=== PATIENT | female | born 1980 | race Caucasian/White ===

== ENCOUNTER 2023-02-02 13:49 | Emergency (ER) | payer BC ==
[~2023-02-02] VITALS: Ht 165.1 cm; Wt 81.2 kg
[2023-02-02 14:00] VITALS: BP_SYST 112
[2023-02-02 14:41] LABS: BASOPHILS % (AUTO) 0.7 % (0.0-2.0); EOSINOPHILS # (AUTO) 0.1 K/uL (0.0-0.4); EOSINOPHILS % (AUTO) 1.8 % (0.0-4.0); HEMATOCRIT 42.6 % (36-48); HEMOGLOBIN 14.5 g/dL (12.0-16.0); LYMPHOCYTES # (AUTO) 1.4 K/uL (1.0-5.5); LYMPHOCYTES % (AUTO) 20.9 % (20.5-51.5); MEAN CORPUSCULAR HEMOGLOBIN 31 pg (27-31); MEAN CORPUSCULAR HGB CONC 34 % (32-36); MEAN CORPUSCULAR VOLUME 90 fL (79.0-98.0); MONOCYTES # (AUTO) 0.5 K/uL (0.0-1.0); NEUTROPHILS # (AUTO) 4.7 K/uL (1.8-7.7); NEUTROPHILS % (AUTO) 69.6 % (40.0-70.0); PLATELET COUNT (AUTO) 286 K/uL (130-430); RED BLOOD CELL COUNT(AUTO) 4.75 MIL/uL (4.2-6.2); RED CELL DISTRIBUTION WIDTH 13.2 % (9.0-15.0); WHITE BLOOD COUNT (AUTO) 6.7 K/uL (4.8-10.8)
[2023-02-02 15:10] LABS: ANION GAP 11 (5-15); CALCIUM 8.9 mg/dL (8.4-11.0); CHLORIDE 99 mmol/L (98-107); CREATININE 0.77 mg/dL (0.55-1.30); GFR AFRICAN AMERICAN 105 mL/min (>90); GLUCOSE 71 mg/dL (74-106); UREA NITROGEN, BLOOD 11 mg/dL (8-21)
[2023-02-02 15:17] LABS: ALANINE AMINOTRANSFERASE 21 U/L (12-78); ALBUMIN 4.1 g/dL (3.4-4.8); ASPARTATE AMINOTRANSFERASE 15 U/L (10-37)
[2023-02-02] MEDS ORDERED: TRAM50TA2 PO (16:15)
[2023-02-02] MEDS ORDERED: IBUP-1969 PO (16:15)
[2023-02-02 16:24] VITALS: BP_SYST 112
== END 2023-02-02 16:24 | disposition home or self-care (01) ==
LOC: SED 13:49
DX: R07.89 Other chest pain (principal); Z88.1 Allergy status to other antibiotic agents; Z79.899 Other long term (current) drug therapy
CPT/HCPCS: 36415; 71045; 80053; 82550; 84484; 85025; 93005; 99285